=== PATIENT | male | born 1975 | race Hispanic/Latino ===

== ENCOUNTER 2022-08-17 16:08 | Emergency (ER) | payer SELFPAY ==
[~2022-08-17] VITALS: Ht 188 cm; Wt 99.8 kg
== END 2022-08-17 18:00 | disposition home or self-care (01) ==
LOC: ER 16:40
DX: M79.89 Other specified soft tissue disorders (principal); R50.9 Fever, unspecified; M25.512 Pain in left shoulder; M25.511 Pain in right shoulder; M79.672 Pain in left foot
CPT/HCPCS: 99282